=== PATIENT | male | born 1990 | race Caucasian/White ===

== ENCOUNTER 2023-06-29 16:56 | Emergency (ER) | payer OTHER ==
[~2023-06-29] VITALS: Ht 172.7 cm; Wt 77.1 kg
[2023-06-29] MEDS ORDERED: COMBIGAN EYE DRO5 ML OP (19:39)
== END 2023-06-29 20:27 | disposition home or self-care (01) ==
LOC: ER 16:57
DX: H57.12 Ocular pain, left eye (principal)